=== PATIENT | male | born 1970 | race Caucasian/White ===

== ENCOUNTER 2016-11-26 06:16 | Emergency (ER) | payer OTHER ==
--- NOTE | ~2016-11-26 | CT4 ---
[facility] A Service of [facility] RADIOLOGY TEXT RESULTS PATIENT: AYDE TERRY LOCATION: SED : 68 UNIT #: [id number] AGE: [address]: Denver Juan MD SEX: M ORDER DR: [id number] [place] [id number] MR#: [id number] Acc #: [id number] NAME: AYDE TERRY. : 1970 SEX: M STUDY DATE/TIME: 11/26/2016 5:09 UNIT: SED ROOM: STUDY DESCRIPTION: CT Abd and Pelv Wo Cont Attending Physician: Denver Juan M.D. Ordering Physician: Denver Juan M.D. Primary Care Physician: Danielito Lyman M.D. MEDICAL IMAGING REPORT This report is preliminary unless electronic signature is present. EXAM Abdomen and pelvis CT no contrast 11/26/2016 INDICATIONS 46-year-old male with flank pain on the right, nausea, symptoms began earlier tonight. TECHNIQUE Noncontrast abdomen and pelvis CT was performed compared with 12/17/[address] examination was performed with one or more of the following radiation dose reduction techniques: automatic exposure control, adjustment of mA and/or kV according to patient size, and iterative reconstruction. FINDINGS CT abdomen: Exam markedly degraded by noncontrast technique. Included lung bases clear. No effusion. No pericardial effusion. Aorta demonstrates no aneurysm. Spleen, adrenal glands, pancreas and gallbladder unremarkable. Liver unremarkable. Left kidney demonstrates no hydronephrosis. Tiny 2 mm nonobstructing stone in the mid pole left kidney. On the right. There is mild hydronephrosis and hydroureter secondary to a 2 mm obstructing stone at the right UVJ level. Additional 3 mm nonobstructing stone in the right kidney. [facility] A Service of [facility] RADIOLOGY TEXT RESULTS PATIENT: AYDE TERRY LOCATION: SED : 68 UNIT #: [id number] AGE: [address]: Denver Juan MD SEX: M ORDER DR: CT pelvis: Prostate borderline enlarged. This should be correlated with PSA levels and physical exam. Bladder unremarkable. No drainable fluid collection in the pelvis. Nonspecific perirectal lymph nodes present not enlarged by CT criteria and presumably reactive. There is diverticulosis. No bowel obstruction. Appendix normal. Inguinal canals are unremarkable. No suspicious bone lesion. IMPRESSION 1. Mild hydronephrosis of the right kidney secondary to an obstructing 2 mm stone at the right UVJ level. 2. Nonobstructing stones present in both kidneys as described above. 3. The appendix is normal. 4. Diverticulosis. 5. Prostatomegaly which should be correlated clinically. Dictated by... Ang Canas M.D. THIS IS AN ELECTRONICALLY VERIFIED REPORT Ang Canas M.D. at 11/26/2016 9:55 PM Marina TD: 11/26/2016 08:38 JOB #: [id number] MEDICAL IMAGING REPORT Page 1 of 1
[2016-11-26 04:45] LABS: BASOPHIL% 0.7 % (0-2.5); EOSINOPHIL# 0.3 X10e3 (0-0.7); EOSINOPHIL% 4.2 % (0.0-7.0); HEMOGLOBIN 15.8 gm/dL (13.0-16.0); LYMPHOCYTE# 2.5 X10e3 (1.0-3.5); MEAN CELL VOLUME 108.9 FL (83-96); MEAN CORPUSCULAR HEMOGLOBIN 37.3 PG (28-34); MEAN CORPUSCULAR HGB CONC 34.2 g/dL (30-36); MEAN PLATELET VOLUME 8.7 FL (6.5-11.5); MONOCYTE# 0.5 X10e3 (0-1.0); NEUTROPHIL# 3.4 X10e3 (1.5-7.1); NEUTROPHIL% 51.1 % (40-75); PLATELET COUNT 195 X10e3 (140-420); RED BLOOD COUNT 4.23 X10e (3.90-5.60); RED CELL DISTRIBUTION WIDTH 16.2 % (11.0-15.5); WHITE BLOOD COUNT 6.7 X10e3 (4.0-10.5)
[2016-11-26 04:50] LABS: DIFF IND NO
[2016-11-26 05:02] LABS: CALCIUM SERUM 9.1 mg/dL (8.4-10.2); GLOM FILT RATE Estimated 89.2 mL/min (>60); POTASSIUM 3.5 mmol/L (3.5-5.1)
[2016-11-26 05:34] LABS: URINE SOURCE CLEAN CATCH
[2016-11-26 05:36] LABS: MICRO INDICATED? YES; URINE APPEARANCE CLEAR; URINE BILIRUBIN NEG (NEG); URINE BLOOD 3+ (NEG); URINE COLOR YELLOW; URINE GLUCOSE NEG (NORM); URINE KETONE NEG (NEG); URINE LEUKOCYTE ESTERASE NEG (NEG); URINE NITRATE NEG (NEG); URINE PROTEIN TRACE (NEG); URINE SPECIFIC GRAVITY >=1.030 (1.003-1.035)
[2016-11-26 05:41] LABS: CULTURE INDICATED? NO; URINE BACTERIA NEG (NEG); URINE MUCUS PRESENT; URINE RBC 50-100 /[HPF] (0-2); URINE SQUAMOUS EPITHELIAL CELL FEW /[HPF]; URINE WBC 0-2 /[HPF] (0-5)
[~2016-11-26 06:16] MED LIST: ASACOL400 MG PO; SYNTHROID PO; ZYLOPRIM PO
== END 2016-11-26 06:24 | disposition home or self-care (01) ==
LOC: SED 06:16
PROVIDERS: Emergency Medicine
DX: N13.2 Hydronephrosis with renal and ureteral calculous obstruction (principal); K50.90 Crohn's disease, unspecified, without complications; F17.200 Nicotine dependence, unspecified, uncomplicated; Z87.442 Personal history of urinary calculi; Z91.040 Latex allergy status; Z79.899 Other long term (current) drug therapy
CPT/HCPCS: 36415; 74176; 80048; 81003; 85025; 96361; 96374; 96375; 99284; J1885; J2405